=== PATIENT | male | born 1955 | race Hispanic/Latino ===

== ENCOUNTER 2018-03-22 01:48 | Inpatient (IN) | payer MEDICARE, MEDICAID ==
[2018-03-22 02:01] VITALS: O2SAT 97
--- NOTE | 2018-03-22 02:07 | ED PDOC ---
Psych Transfer Clearance - Clearance Statement Clearance Statement: Vital signs, lab results and transfer papers reviewed by Dr Montano on previous shift. Patient clinically stable for psychiatric admission.
[2018-03-22] MEDS ORDERED: Alum-Mag Hydrox-Simethicone Susp (30 mL) PO PRN (02:42)
[2018-03-22] MEDS ORDERED: Bismuth Subsalicylate 262 mg/15 ml Sus (240 ml) PO PRN (02:42)
[2018-03-22] MEDS ORDERED: Magnesium Hydroxide Susp 30 ml UD PO PRN (02:42)
--- NOTE | 2018-03-22 03:45 | PCM.BM ---
<Michelle Lewis - Last Filed: 03/22/18 03:43> Treatment Plan Problems - Problems identified on initial assessmt Auditory hallucination Date Initiated: 03/22/18 Time Initiated: 03:43 Assessment reference: NA Status: Active Treatment assets and liabiliti Patient Assests: cooperative, ADL independent, good support system, negotiates basic needs, good past tx response, cognitively intact Patient Liabilities: live alone - Milieu Protocol Maintain good personal hygiene: every shift Encourage regular showers, every shift Remind patient to perform daily oral care, every shift Assist patient to perform ADL's Conduct patient checks and document Observation sheet: Q15 minutes Maintain personal safety: every shift Educate patient to report safety concerns to staff, every shift Monitor environment for contraband/sharps Medication safety: Monitor for expected outcome, potential side effects: every shift, Assess barriers to learning: every shift, Assess readiness for medication education: every shift <Concetta Dial - Last Filed: 03/22/18 09:29> - Diagnosis (1) Schizoaffective disorder Status: Acute Interventions: Medication management, Individual and group therapy, Psychoeducation 03/22/18 09:30 <Porter Rcoha - Last Filed: 03/24/18 10:01> Family Contact Family involvement: Family/SO is involved Family contact: Patient agrees to contact, Family has been contacted by patient , Telephone contact initiated by staff Family contact name: Rafi Ibrahim - Sister [phone] Family contacted how many times per week?: 4 Family contact comment: Rafi reported that she sees pt every week at his current nursing home. Rafi reported that pt is generally hospitalized at [facility] and he is "in and out every couple days." Rafi feels that staff often discharge pt too early and pt is never fully stabilized. Rafi worries that pt is not getting his medications at the nursing home. Pt is housed at [facility]. Rafi reported the home is owned by the "[employer]" and that none of the staff speak Swedish. This housing is provided through [facility] where pt attends a day program and works with socially responsible investment adviser, Alyson. Rafi has never been able to speak with Alyson. Rafi reported that pt was recently placed on the Prolixin and she is not sure if it is helpful as pt has been increasingly groggy and difficult to understand. Rafi is not even sure that they do bloodwork to ensure that the medications are at the right levels. Rafi reported that the nursing home allows pt to appear unkempt and do not assist him in shaving. - Goals for Treatment Patient goals for treatment: Pt unable to list any specific goals at this time. Patient's family/SO goals for treatment: Pt's sister would like pts medications to be sorted out, and pt be appropriately evaluated by staff. Discharge/Continuing Care - Education Needs Education Needs: Family Medication, Family Diagnosis/Disease Process, Family Coping Skills, Family Placement options, Family Community resources, Family Aftercare Safety Plan, Patient Medication, Patient Diagnosis/Disease Process, Patient Coping Skills, Patient Placement options, Patient Community resources, Patient Aftercare Safety Plan - Discharge Discharge Criteria: Tolerates medication w/o severe side effects, Free of paranoid thoughts, Free of agitation, Normal sleep pattern, Ability to care for self, Reduction of target symptoms Discharge to:: [facility] - Treatment Team Participation Patient/Family/SO Statement: 03/24/18 09:58 Pt was met with in treatment team on 03/23/18. Pt denied voices at this time and reported his mood was "good." Pt reported his psychiatrist's name at [facility] is Dr. Nguyễn. Pt was a poor historian and could not give details into his medications prior to hospitalization. Dr. Dial explained to pt that she would like him to stay for at least a week, so she can consolidate medications and ensure that pt is being treated appropriately. Discussed with Family/SO: Yes Was Patient/Family/SO present at Treatment Team Meeting: Yes
[2018-03-22 03:47] LABS: URINE BILIRUBIN NEGATIVE (NEGATIVE); URINE BLOOD MODERATE (NEGATIVE); URINE CLARITY CLEAR (Clear); URINE COLOR YELLOW (YELLOW); URINE GLUCOSE (UA) NEG (Normal); URINE LEUKOCYTE ESTERASE NEG Leu/uL (Negative); URINE PROTEIN NEGATIVE (NEGATIVE); URINE UROBILINOGEN 0.2-1.0 mg/dL (0.2-1.0)
[2018-03-22 07:07] LABS: MEAN CELL VOLUME 88.8 fl (80.0-94.0); MEAN CORPUSCULAR HGB CONC 33.7 g/dL (33.0-37.0); RBC 4.66 Mil/uL (4.40-5.90); RED CELL DISTRIBUTION WIDTH 14.3 % (11.5-14.5); WHITE BLOOD COUNT 10.6 K/uL (4.8-10.8)
[2018-03-22 07:28] LABS: ALB/GLOB RATIO 1.1 (1.0-2.1); ALBUMIN 3.5 g/dL (3.5-5.0); ALT/SGPT 15 U/L (21-72); AST/SGOT 13 U/L (17-59); BLOOD UREA NITROGEN 9 mg/dl (9-20); CALCIUM 8.4 mg/dL (8.4-10.2); GFR NON-AFRICAN AMERICAN > 60; HDL CHOLESTEROL 22 MG/DL (30-70)
[2018-03-22 07:39] LABS: LDL CHOLESTEROL 125 mg/dL (0-129)
[2018-03-22 07:54] LABS: T4 9.07 ug/dl (5.5-11.0)
[2018-03-22 08:11] LABS: FERRITIN 67.6 ng/Ml (17.9-464)
[2018-03-22 09:07] LABS: VALPROIC ACID 30.7 ug/mL (50.0-100.0)
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
--- NOTE | 2018-03-22 11:01 | CARD ---
APPROVED REPORT Date of service: 03/22/2018 EKG Measurement Heart [id number] <Conclusion> Normal sinus rhythm borderline incomplete right bundle branch block Borderline ECG
[2018-03-22 13:35] LABS: FOLATE 7.5 ng/mL
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
[2018-03-22] MEDS: Divalproex 250 mg DR(BID formulation) PO SCH (16:12)
[2018-03-23] MEDS: Divalproex 250 mg DR(BID formulation) PO SCH (08:22)
[2018-03-23] MEDS ORDERED: FLUPHENAZINE 2.5 MG/5 ML PO SCH (09:00)
--- NOTE | 2018-03-23 10:51 | PCM.PYCHPN ---
Psychiatric Progress Note - Psychiatric Progress Note Patient seen today, length of contact: Patient evaluated, case discussed w/ team , chart reviewed Patient Chief Complaint: "I was hearing voices telling me to jump in front of a truck." Problems Identified/Issues Discussed: Patient continues to have poor hygiene w/ blunted affect and intermittent AH. He denies current SI/HI. He reports that his mood is neutral, but patient seems withdrawn and sad. We discussed reducing polypharmacology to make increase chances of patient being compliant with his medication as he can not recall which medications he takes or when he takes them. Medication Change: Yes (Stop Depakote; Increase Clozaril) Medical Record Reviewed: Yes Consults ordered or reviewed: Medicine consult Mental Status Examination - Cognitive Function Orientation: Person, Place, Situation, Time Memory: Impaired Attention: Poor Association: Loose Fund of Knowledge: Poor Decription of patient's judgement and insights: Poor I/J - Mood Mood: Neutral - Affect Affect: Blunted - Speech Speech: Soft - Formal Thought Process Formal Thought Process: Hallucinations (Recent AH, denies current) Psychotic Thoughts and Behaviors: Intermittent AH - Suicidal Ideation Suicidal Ideation: No - Homicidal Ideation Homicidal Ideation: No Goal/Treatment Plan - Goal/Treatment Plan Need for Continued Stay: Remain at risks for inpatient hospitalization, Discharge may exacerbated symptoms, Severe functional impairment Progress Toward Problem(s) and Goals/Treatment Plan: Schizoaffective Disorder -Individual and group therapy -Increase Clozaril -Stop Depakote -Continue Trazodone and Prolixin; will consider long acting injectable -Medicine consult -Disposition planning Estimated Date of D/C: 03/29/18
[2018-03-23 15:59] LABS: SQUAMOUS EPITHIAL < 1 /hpf (0-5); URINE BILIRUBIN NEGATIVE (NEGATIVE); URINE BLOOD SMALL (NEGATIVE); URINE CLARITY CLEAR (Clear); URINE COLOR YELLOW (YELLOW); URINE GLUCOSE (UA) NEG (Normal); URINE LEUKOCYTE ESTERASE NEG Leu/uL (Negative); URINE PROTEIN NEGATIVE (NEGATIVE); URINE UROBILINOGEN 0.2-1.0 mg/dL (0.2-1.0)
--- NOTE | 2018-03-24 09:37 | PCM.PYCHPN ---
Psychiatric Progress Note - Psychiatric Progress Note Patient seen today, length of contact: Patient evaluated, case discussed w/ team , chart reviewed Patient Chief Complaint: "I was hearing voices telling me to jump in front of a truck." Problems Identified/Issues Discussed: Patient showered yesterday w/ staff encouragement. He continues to have blunted affect and intermittent AH. He denies current SI/HI. We discussed reducing polypharmacology and starting a long acting injectable, to make increase chances of patient being compliant with his medication as he can not recall which medications he takes or when he takes them. Medication Change: Yes (Switch Prolixin to monthly injection; Increase Clozaril) Medical Record Reviewed: Yes Consults ordered or reviewed: Medicine consult Mental Status Examination - Cognitive Function Orientation: Person, Place, Situation, Time Memory: Impaired Attention: Poor Association: Loose Fund of Knowledge: Poor Decription of patient's judgement and insights: Limited I/J - Mood Mood: Neutral - Affect Affect: Blunted - Speech Speech: Soft - Formal Thought Process Formal Thought Process: Hallucinations (Recent AH, denies current) Psychotic Thoughts and Behaviors: Intermittent AH - Suicidal Ideation Suicidal Ideation: No - Homicidal Ideation Homicidal Ideation: No Goal/Treatment Plan - Goal/Treatment Plan Need for Continued Stay: Remain at risks for inpatient hospitalization, Discharge may exacerbated symptoms, Severe functional impairment Progress Toward Problem(s) and Goals/Treatment Plan: Schizoaffective Disorder -Individual and group therapy -Increase Clozaril -Continue Trazodone -Switch PO Prolixin to long acting injection 25 mg qMonthly -Medicine consult -Disposition planning Estimated Date of D/C: 03/29/18
[2018-03-24] MEDS ORDERED: fluPHENAZine Decanoate 25 mg/mL Inj(5ml) IM ONE (10:40)
[2018-03-25 06:38] LABS: BASO # 0.1 K/uL (0.0-0.2); BASO % 0.6 % (0.0-2.0); EOS % 0.3 % (0.0-4.0); HEMOGLOBIN 13.5 g/dL (12.0-18.0); LYMPH # 3.9 K/uL (1.0-4.3); LYMPH % 32.3 % (20.0-40.0); MEAN CELL VOLUME 88.2 fl (80.0-94.0); MEAN CORPUSCULAR HEMOGLOBIN 29.3 pg (27.0-31.0); MEAN CORPUSCULAR HGB CONC 33.2 g/dL (33.0-37.0); MEAN PLATELET VOLUME 8.3 fl (7.2-11.7); MONO # 1.1 K/uL (0.0-0.8); MONO % 9.2 % (0.0-10.0); NEUT % 57.6 % (50.0-75.0); NRBC % 0.1 % (0.0-0.0); RBC 4.62 Mil/uL (4.40-5.90); WHITE BLOOD COUNT 12.1 K/uL (4.8-10.8)
--- NOTE | 2018-03-25 08:37 | PCM.PYCHPN ---
Psychiatric Progress Note - Psychiatric Progress Note Patient seen today, length of contact: Patient evaluated, case discussed w/ team , chart reviewed Patient Chief Complaint: "I was hearing voices telling me to jump in front of a truck." Problems Identified/Issues Discussed: Patient continues to have poor hygiene and is encouraged to groom and shower. He continues to have blunted affect w/ poverty of speech. He denies acute auditory hallucinations, but seems internally preoccupied at times. Denies VH/ SI/HI/paranoia. No adverse effects to medications reported. Medication Change: No Medical Record Reviewed: Yes Consults ordered or reviewed: Medicine consult Mental Status Examination - Cognitive Function Orientation: Person, Place, Situation, Time Memory: Impaired Attention: Poor Association: Loose Fund of Knowledge: Poor Decription of patient's judgement and insights: Limited I/J - Mood Mood: Neutral - Affect Affect: Blunted - Speech Speech: Soft - Formal Thought Process Formal Thought Process: Other (Poverty of Speech) Psychotic Thoughts and Behaviors: Denies acute AH - Suicidal Ideation Suicidal Ideation: No - Homicidal Ideation Homicidal Ideation: No Goal/Treatment Plan - Goal/Treatment Plan Need for Continued Stay: Remain at risks for inpatient hospitalization, Discharge may exacerbated symptoms, Severe functional impairment Progress Toward Problem(s) and Goals/Treatment Plan: Schizoaffective Disorder -Individual and group therapy -Continue Clozaril -Continue Trazodone -Proxilin 25 mg IM given on 03/24/18 -Medicine consult -Disposition planning Estimated Date of D/C: 03/29/18
--- NOTE | 2018-03-26 10:05 | PCM.PYCHPN ---
Psychiatric Progress Note - Psychiatric Progress Note Patient seen today, length of contact: Patient evaluated, case discussed w/ team , chart reviewed Patient Chief Complaint: pt is still very withdrawn and with poor hygiene and flat affect but compliant with meds. wbc = 12.1 03/25 Medication Change: No Medical Record Reviewed: Yes Mental Status Examination - Cognitive Function Orientation: Person, Place, Situation, Time Memory: Impaired Attention: Poor Association: Loose Fund of Knowledge: Poor - Mood Mood: Neutral - Affect Affect: Blunted - Speech Speech: Soft - Formal Thought Process Formal Thought Process: Other (Poverty of Speech) - Suicidal Ideation Suicidal Ideation: No - Homicidal Ideation Homicidal Ideation: No Goal/Treatment Plan - Goal/Treatment Plan Need for Continued Stay: Remain at risks for inpatient hospitalization, Discharge may exacerbated symptoms, Severe functional impairment Progress Toward Problem(s) and Goals/Treatment Plan: will continue the current regimen of clozaril and pt continues to refuse prolixin injection. Estimated Date of D/C: 03/29/18
[2018-03-27 07:32] LABS: BASO # 0.1 K/uL (0.0-0.2); EOS % 0.3 % (0.0-4.0); HEMOGLOBIN 14.6 g/dL (12.0-18.0); LYMPH # 3.5 K/uL (1.0-4.3); LYMPH % 30.9 % (20.0-40.0); MEAN CELL VOLUME 87.6 fl (80.0-94.0); MEAN CORPUSCULAR HEMOGLOBIN 29.6 pg (27.0-31.0); MEAN CORPUSCULAR HGB CONC 33.7 g/dL (33.0-37.0); MEAN PLATELET VOLUME 8.1 fl (7.2-11.7); MONO % 8.6 % (0.0-10.0); NEUT # 6.7 K/uL (1.8-7.0); NEUT % 59.2 % (50.0-75.0); NRBC % 0.1 % (0.0-0.0); RBC 4.94 Mil/uL (4.40-5.90); RED CELL DISTRIBUTION WIDTH 13.8 % (11.5-14.5); WHITE BLOOD COUNT 11.3 K/uL (4.8-10.8)
--- NOTE | 2018-03-27 13:14 | PCM.PYCHPN ---
Psychiatric Progress Note - Psychiatric Progress Note Patient seen today, length of contact: Patient evaluated, case discussed w/ team , chart reviewed Patient Chief Complaint: pt has remained preoccupied and is still very withdrawn and with poor hygiene and flat affect but compliant with meds. wbc repeated and now normal range decreased from 12 to 11 .no side effects reported. Medication Change: No Medical Record Reviewed: Yes Mental Status Examination - Cognitive Function Orientation: Person, Place, Situation, Time Memory: Impaired Attention: Poor Association: Loose Fund of Knowledge: Poor - Mood Mood: Neutral - Affect Affect: Blunted - Speech Speech: Soft - Formal Thought Process Formal Thought Process: Other (Poverty of Speech) - Suicidal Ideation Suicidal Ideation: No - Homicidal Ideation Homicidal Ideation: No Goal/Treatment Plan - Goal/Treatment Plan Need for Continued Stay: Remain at risks for inpatient hospitalization, Discharge may exacerbated symptoms, Severe functional impairment Progress Toward Problem(s) and Goals/Treatment Plan: will continue the current regimen of clozaril and pt continues to refuse prolixin injection. will continue to monitor WBC for clozaril . Estimated Date of D/C: 03/29/18
--- NOTE | 2018-03-28 09:00 | PCM.PYCHPN ---
Psychiatric Progress Note - Psychiatric Progress Note Patient seen today, length of contact: Patient evaluated, case discussed w/ team , chart reviewed Patient Chief Complaint: "I'm okay." Problems Identified/Issues Discussed: Patient reports feeling overly tired in the morning, so we discussed lowering AM dosage of clozaril. Patient continue to have negative symptoms, including poverty of speech and blunted affect; but he seems to be approaching his baseline of functioning. He denies AH/VH/SI/HI. He is more goal oriented and we discussed likely discharge tomorrow. No adverse effects to medications reported. Medication Change: Yes (Lower Clozaril) Medical Record Reviewed: Yes Consults ordered or reviewed: Medicine consult Mental Status Examination - Cognitive Function Orientation: Person, Place, Situation, Time Memory: Impaired (Chronic deficits in memory, attention and concentration) Attention: Poor Association: WNL Fund of Knowledge: Poor Decription of patient's judgement and insights: Limited I/J - Mood Mood: Neutral - Affect Affect: Blunted - Speech Speech: Soft - Formal Thought Process Formal Thought Process: No Impairment, Other (Poverty of Speech) Psychotic Thoughts and Behaviors: Denies AH/VH/paranoia/delusions - Suicidal Ideation Suicidal Ideation: No - Homicidal Ideation Homicidal Ideation: No Goal/Treatment Plan - Goal/Treatment Plan Need for Continued Stay: Discharge may exacerbated symptoms Progress Toward Problem(s) and Goals/Treatment Plan: Schizoaffective Disorder; patient appears to be approaching his baseline of functioning -Individual and group therapy -Clozaril 50 mg PO Daily/ 200 mg PO HS -Trazodone 150 mg PO HS -Proxilin 25 mg IM given on 03/24/18 -Medicine consult -Disposition planning- likely discharge tomorrow Estimated Date of D/C: 03/29/18
[2018-03-28 17:25] VITALS: TEMP 97.5
[2018-03-29 06:08] VITALS: RESP 18
[2018-03-29 08:29] VITALS: BP 112/66; PULSE 83
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
== END 2018-03-29 15:15 | disposition home or self-care (01) | DRG 885 ==
LOC: H.ER 01:48 → H.STEP 02:04
PROVIDERS: ADMIT Psychiatry & Neurology Psychiatry; ATTEND Psychiatry & Neurology Psychiatry
PROC: GZHZZZZ Group Psychotherapy (ICD-10-PCS; principal; 2018-03-22)
DX: F25.9 Schizoaffective disorder, unspecified (principal); I10 Essential (primary) hypertension; M06.9 Rheumatoid arthritis, unspecified; F17.200 Nicotine dependence, unspecified, uncomplicated; M19.90 Unspecified osteoarthritis, unspecified site